=== PATIENT | female | born 1990 | race Asian ===

== ENCOUNTER 2019-03-01 16:29 | Inpatient (IN) | payer OTHER ==
[~2019-03-01] VITALS: Ht 149.9 cm; Wt 58.5 kg
[2019-03-01 17:14] LABS: BILIRUBIN,URINE SMALL (NEG); CLARITY,URINE CLEAR; COLOR,URINE AMBER; NITRITE,URINE NEGATIVE (NEG); PH,URINE 6.5; PROTEIN,URINE NEGATIVE (NEG-TRACE)
[2019-03-01] MEDS ORDERED: TERBUTALINE 1 MG/ML VIAL. SQ PRN (17:15)
[2019-03-01] MEDS ORDERED: IBUPROFEN 400 MG TABLET. PO PRN (17:15)
[2019-03-01] MEDS ORDERED: 0.9 % SODIUM CHLORIDE 10 ML DISP.SYRIN. IV PRN (17:15)
[2019-03-01] MEDS ORDERED: OXYTOCIN 30 UNIT/500 ML PREMIX 500 ML IV PRN ×2 (17:15)
[2019-03-01] MEDS ORDERED: LIDOCAINE 1% PF 30 ML VIAL. INJ PRN (17:15)
--- NOTE | 2019-03-01 17:16 | PDOC1 ---
OB - History Hx of Present Care: Good Care Ultrasounds: Normal mid trimester US Obstetrical Complications: None Medical Complications: None Past Family/Social History * Past Medical, Surgical, Family and Obstetric Histories reviewed from chart. Blood Type: Unknown Rubella: Unknown RPR/VDRL: Unknown GBS Status: Negative HBsAG: Unknown OB - Chief Complaint & HPI Date of Admission: Date of Admission: Mar 01, 2019 at 16:29 Chief Complaint/History : 2 Para: 1 EGA: 39 Reason for admission: active labor Admission Nurse Assessment Rev: Yes OB - Admission Exam Physical Exam HEENT: Normal Heart: Regular Rate Lungs: Clear Abdomen: Gravid, Non tender, Soft Extremities: Edema Reflexes: Normal Cervical Dilatation: 2cm Effacement: 75% Station: -3 Membranes: Intact Heart Rate: Normal Accelerations: Accelerations Present Decelerations: No decelerations Contractions on Admission: 6-10 Minutes Apart Intensity: Firm Text A: 39 wks IUP Active labor P: Admit labor management. JENNIFER SANCHEZ Jr, MD Mar 01, 2019 17:15
[2019-03-01 17:27] LABS: BACTERIA,URINE MANY /HPF (0-FEW); SQUAMOUS EPITHELIAL CELL,UR MANY /LPF
[2019-03-01 17:28] LABS: RBC,URINE OCC /HPF (0-2); WBC,URINE 20-40 /HPF (0-4)
[2019-03-01] MEDS ORDERED: BUTORPHANOL 2 MG/ML VIAL. IV PRN (17:30)
[2019-03-01] MEDS ORDERED: fentaNYL PF VIAL 100 MCG/2 ML VIAL IV PRN ×2 (17:30)
[2019-03-01] MEDS ORDERED: NALBUPHINE 10 MG/ML AMPUL. IV PRN (17:30)
[2019-03-01 17:47] LABS: BASO % 0 % (0-3); EOS # 0.1 x10^3/uL (0.0-0.7); EOS % 1 % (0-3); HEMATOCRIT 30.5 % (36.0-47.0); HEMOGLOBIN 10.6 g/dL (12.0-15.5); LYMPH # 1.8 x10^3/uL (1.0-4.8); LYMPH % 25 % (24-48); MEAN CORPUSCULAR HEMOGLOBIN 29 pg (25-35); MEAN CORPUSCULAR HGB CONC 35 g/dL (31-37); MEAN CORPUSCULAR VOLUME 84 fL (79-100); MONO # 0.6 x10^3/uL (0.0-1.1); MONO % 8 % (0-9); NEUT # 4.8 x10^3/uL (1.8-7.7); NEUT % 66 % (31-73); PLATELET COUNT 219 x10^3/uL (140-400); RED BLOOD COUNT 3.64 x10^6/uL (3.50-5.40); WHITE BLOOD COUNT 7.3 x10^3/uL (4.0-11.0)
[2019-03-01] MEDS: IV RINGERS,LACTATED 1000ML 1,000 ML IV SCH ×2 (18:08→23:12)
[2019-03-01 18:14] VITALS: BP 114/69
[2019-03-02] MEDS: IV RINGERS,LACTATED 1000ML 1,000 ML IV SCH (06:39)
[2019-03-02] MEDS ORDERED: ROPIVacaine 0.2% PF 10 ML VIAL. ONE ×2 (06:53→07:00)
[2019-03-02] MEDS ORDERED: L&D EPIDURAL SYRINGE 50 ML ONE (06:54)
[2019-03-02] MEDS ORDERED: L&D EPIDURAL 50 ML SYRINGE. ONE (07:00)
--- NOTE | 2019-03-02 09:58 | PDOC ---
VAGINAL DELIVERY DATE DATE: 03/02/19 TIME: 09:57 : 2 Para: 2 EGA: 39 VAGINAL DELIVERY: VTX VACCUM ASSISTED: No PLACENTA: Spontaneous 8/9 SEX: Female WEIGHT Weight [3480 gm ] Nuchal Cord: No Amniotic Fluid: Thin Meconium PAIN: Epidural EPISIOTOMY: No EXTENSION: Yes (2nd degree midline laceration) REPAIRED WITH 2-0 vicryl EBL 300 ml COMPLICATIONS none CONDITION pt. stable Signs of Intrauterine Infectio: None Shoulder Dystocia: No JENNIFER SANCHEZ Jr, MD Mar 02, 2019 09:58
[2019-03-02] MEDS ORDERED: OXYTOCIN 30 UNIT/500 ML PREMIX 500 ML IV PRN (10:00)
[2019-03-02] MEDS ORDERED: HYDROCORTISONE 1% TOPICAL OINTMENT 30GM TUBE. TP PRN (10:00)
[2019-03-02] MEDS ORDERED: oxyCODONE/APAP 5/325 1 TAB TABLET PO PRN (10:00)
[2019-03-02] MEDS ORDERED: BENZOCAINE 20% TOPICAL AEROSOL SPRAY 57GM CAN. TP PRN (10:00)
[2019-03-02] MEDS ORDERED: MAG HYDROX/ALUMINUM HYD/SIMETH 30 ML ORAL.SUSP PO PRN (10:00)
[2019-03-02] MEDS ORDERED: SIMETHICONE 80 MG TAB.CHEW PO PRN (10:00)
[2019-03-02] MEDS ORDERED: diphenhydrAMINE HCL 25 MG CAPSULE PO PRN (10:00)
[2019-03-02] MEDS ORDERED: PHENYLEPH/MINERAL OIL/PETROLAT RECTAL OINTMENT TUBE. RC PRN (10:00)
[2019-03-02] MEDS ORDERED: 0.9 % SODIUM CHLORIDE 10 ML DISP.SYRIN. IV PRN (10:00)
[2019-03-02] MEDS ORDERED: ZOLPIDEM 5 MG TABLET. PO PRN (10:00)
[2019-03-02] MEDS ORDERED: MAGNESIUM HYDROXIDE 2,400 MG/30 ML ORAL.SUSP. PO PRN (10:00)
[2019-03-02] MEDS ORDERED: MMR per PROTOCOL. MC PRN (10:00)
[2019-03-02] MEDS ORDERED: ACETAMINOPHEN 325 MG TABLET. PO PRN (10:00)
[2019-03-02] MEDS: IBUPROFEN 400 MG TABLET. PO PRN ×2 (11:38→19:57)
[2019-03-02 12:30] VITALS: BP 117/71
[2019-03-02 13:30] VITALS: BP 119/68
[2019-03-02 17:05] VITALS: BP 118/69
[2019-03-02] MEDS: DOCUSATE SODIUM 100 MG CAPSULE. PO PRN (19:57)
[2019-03-02 20:10] VITALS: BP 117/78
[2019-03-03 00:36] VITALS: BP 99/59
[2019-03-03 04:18] VITALS: BP 119/54
[2019-03-03 04:22] LABS: BASO % 0 % (0-3); EOS # 0.1 x10^3/uL (0.0-0.7); EOS % 1 % (0-3); HEMATOCRIT 30.1 % (36.0-47.0); HEMOGLOBIN 10.2 g/dL (12.0-15.5); LYMPH # 2.8 x10^3/uL (1.0-4.8); LYMPH % 29 % (24-48); MEAN CORPUSCULAR HEMOGLOBIN 29 pg (25-35); MEAN CORPUSCULAR HGB CONC 34 g/dL (31-37); MEAN CORPUSCULAR VOLUME 84 fL (79-100); MONO # 0.7 x10^3/uL (0.0-1.1); MONO % 7 % (0-9); NEUT # 6.1 x10^3/uL (1.8-7.7); NEUT % 63 % (31-73); PLATELET COUNT 196 x10^3/uL (140-400); RED BLOOD COUNT 3.59 x10^6/uL (3.50-5.40); WHITE BLOOD COUNT 9.7 x10^3/uL (4.0-11.0)
--- NOTE | 2019-03-03 08:08 | PDOC ---
OB Progress Note Date of Service 03/03/19 Time of Evaluation 0805 Notes Pt. feeling well. No complaints. Breast feeding. Lab Laboratory Tests Test 03/01/19 16:47 03/01/19 17:34 03/03/19 04:15 Urine Collection Type Unknown Urine Color Krissy Urine Clarity Clear Urine pH 6.5 Urine Specific [place] 1.025 Urine Protein Negative mg/dL (NEG-TRACE) Urine Glucose (UA) Negative mg/dL (NEG) Urine Ketones (Stick) Negative mg/dL (NEG) Urine Blood Negative (NEG) Urine Nitrite Negative (NEG) Urine Bilirubin Small (NEG) Urine Urobilinogen Dipstick 4.0 mg/dL (0.2 mg/dL) Urine Leukocyte Esterase Moderate (NEG) Urine RBC Occ /HPF (0-2) Urine WBC 20-40 /HPF (0-4) Urine Squamous Epithelial Cells Many /LPF Urine Bacteria Many /HPF (0-FEW) Urine Mucus Marked /LPF White Blood Count 7.3 x10^3/uL (4.0-11.0) 9.7 x10^3/uL (4.0-11.0) Red Blood Count 3.64 x10^6/uL (3.50-5.40) 3.59 x10^6/uL (3.50-5.40) Hemoglobin 10.6 g/dL (12.0-15.5) 10.2 g/dL (12.0-15.5) Hematocrit 30.5 % (36.0-47.0) 30.1 % (36.0-47.0) Mean Corpuscular Volume 84 fL (79-100) 84 fL (79-100) Mean Corpuscular Hemoglobin 29 pg (25-35) 29 pg (25-35) Mean Corpuscular Hemoglobin Concent 35 g/dL (31-37) 34 g/dL (31-37) Red Cell Distribution Width 13.0 % (11.5-14.5) 13.0 % (11.5-14.5) Platelet Count 219 x10^3/uL (140-400) 196 x10^3/uL (140-400) Neutrophils (%) (Auto) 66 % (31-73) 63 % (31-73) Lymphocytes (%) (Auto) 25 % (24-48) 29 % (24-48) Monocytes (%) (Auto) 8 % (0-9) 7 % (0-9) Eosinophils (%) (Auto) 1 % (0-3) 1 % (0-3) Basophils (%) (Auto) 0 % (0-3) 0 % (0-3) Neutrophils # (Auto) 4.8 x10^3/uL (1.8-7.7) 6.1 x10^3/uL (1.8-7.7) Lymphocytes # (Auto) 1.8 x10^3/uL (1.0-4.8) 2.8 x10^3/uL (1.0-4.8) Monocytes # (Auto) 0.6 x10^3/uL (0.0-1.1) 0.7 x10^3/uL (0.0-1.1) Eosinophils # (Auto) 0.1 x10^3/uL (0.0-0.7) 0.1 x10^3/uL (0.0-0.7) Basophils # (Auto) 0.0 x10^3/uL (0.0-0.2) 0.0 x10^3/uL (0.0-0.2) Treponema pallidum Antibody Nonreactive (Nonreactive) Hepatitis B Surface Antigen Nonreactive (Nonreactive) Laboratory Tests Test 03/03/19 04:15 White Blood Count 9.7 x10^3/uL (4.0-11.0) Red Blood Count 3.59 x10^6/uL (3.50-5.40) Hemoglobin 10.2 g/dL (12.0-15.5) Hematocrit 30.1 % (36.0-47.0) Mean Corpuscular Volume 84 fL (79-100) Mean Corpuscular Hemoglobin 29 pg (25-35) Mean Corpuscular Hemoglobin Concent 34 g/dL (31-37) Red Cell Distribution Width 13.0 % (11.5-14.5) Platelet Count 196 x10^3/uL (140-400) Neutrophils (%) (Auto) 63 % (31-73) Lymphocytes (%) (Auto) 29 % (24-48) Monocytes (%) (Auto) 7 % (0-9) Eosinophils (%) (Auto) 1 % (0-3) Basophils (%) (Auto) 0 % (0-3) Neutrophils # (Auto) 6.1 x10^3/uL (1.8-7.7) Lymphocytes # (Auto) 2.8 x10^3/uL (1.0-4.8) Monocytes # (Auto) 0.7 x10^3/uL (0.0-1.1) Eosinophils # (Auto) 0.1 x10^3/uL (0.0-0.7) Basophils # (Auto) 0.0 x10^3/uL (0.0-0.2) Medications Current Medications Sodium Chloride (Normal Saline Flush) 3 ml QSHIFT PRN IV AFTER MEDS AND BLOOD DRAWS; Start 03/01/19 at 17:15; Stop 03/02/19 at 10:03; Status DC Ringer's Solution 1,000 ml @ 125 mls/hr Q8H IV Last administered on 03/02/19at 06:39; Start 03/01/19 at 17:09; Stop 03/02/19 at 20:16; Status DC Terbutaline Sulfate (Brethine) 0.25 mg 1X PRN PRN SQ SEE COMMENTS; Start 03/01/19 at 17:15; Stop 03/02/19 at 17:14; Status DC Lidocaine HCl (Xylocaine 1% Pf 30ml Vial) 30 ml 1X PRN PRN INJ SEE COMMENTS; Start 03/01/19 at 17:15; Stop 03/03/19 at 17:14 Oxytocin/Sodium Chloride 500 ml @ 0 mls/hr CONT PRN IV SEE I/O RECORD Last administered on 03/02/19at 05:23; Start 03/01/19 at 17:15 Oxytocin/Sodium Chloride 500 ml @ 0 mls/hr CONT PRN PRN IV Post delivery bleeding; Start 03/01/19 at 17:15 Ibuprofen (Motrin) 800 mg PRN Q6HRS PRN PO PAIN; Start 03/01/19 at 17:15; Stop 03/02/19 at 10:04; Status DC Nalbuphine HCl (Nubain) 10 mg PRN Q1HR PRN IV Severe labor pain; Start 03/01/19 at 17:30; Status UNV Butorphanol Tartrate (Stadol) 2 mg PRN Q1HR PRN IV Severe labor pain; Start 03/01/19 at 17:30 Fentanyl Citrate (Fentanyl 2ml Vial) 100 mcg PRN Q30MIN PRN IV Severe pain; Start 03/01/19 at 17:30 Fentanyl Citrate (Fentanyl 2ml Vial) 50 mcg PRN Q20MIN PRN IV Labor pain Last administered on 03/02/19at 06:37; Start 03/01/19 at 17:30 Ropivacaine (Naropin 0.2%) 10 ml STK-MED ONCE .ROUTE ; Start 03/02/19 at 06:53; Stop 03/02/19 at 06:54; Status DC Fentanyl Citrate 50 ml @ As Directed STK-MED ONCE .ROUTE ; Start 03/02/19 at 06:54; Stop 03/02/19 at 06:54; Status DC Sodium Chloride (Normal Saline Flush) 10 ml QSHIFT PRN IV AFTER MEDS AND BLOOD DRAWS; Start 03/02/19 at 10:00 Oxytocin/Sodium Chloride 500 ml @ 62.5 mls/hr CONT PRN IV SEE I/O RECORD; Start 03/02/19 at 10:00; Stop 03/02/19 at 17:59; Status DC Acetaminophen (Tylenol) 650 mg PRN Q6HRS PRN PO MILD PAIN / TEMP; Start 03/02/19 at 10:00 Ibuprofen (Motrin) 800 mg PRN Q8HRS PRN PO INFLAMMATION/PAIN PREVENTION Last administered on 03/02/19at 19:57; Start 03/02/19 at 10:00 Docusate Sodium (Colace) 100 mg PRN BID PRN PO CONSTIPATION Last administered on 03/02/19at 19:57; Start 03/02/19 at 10:00 Magnesium Hydroxide (Milk Of Magnesia) 2,400 mg PRN DAILY PRN PO CONSTIPATION; Start 03/02/19 at 10:00 Al Hydroxide/Mg Hydroxide (Mylanta Plus Xs) 30 ml PRN Q4HRS PRN PO HEARTBURN / GAS; Start 03/02/19 at 10:00 Simethicone (Gas-X) 80 mg PRN AFTMEALHC PRN PO GAS / BLOATING; Start 03/02/19 at 10:00 Diphenhydramine HCl (Benadryl) 25 mg PRN Q6HRS PRN PO ITCHING; Start 03/02/19 at 10:00 Benzocaine (Americaine) 1 spray PRN QID PRN TP TOPICAL PAIN; Start 03/02/19 at 10:00 Phenyleph/Shark Oil/Min Oil/Petrol (Preparation H) 1 napoleon PRN QID PRN RC RECTAL PAIN; Start 03/02/19 at 10:00 Hydrocortisone (Cortaid) 1 napoleon PRN QID PRN TP PERINEAL PAIN; Start 03/02/19 at 10:00 Ferrous Sulfate (Feosol) 325 mg BIDWMEALS PO ; Start 03/03/19 at 08:00 Zolpidem Tartrate (Ambien) 5 mg PRN QHS PRN PO INSOMNIA, MAY REPEAT X1; Start 03/02/19 at 10:00 Info (Do NOT chart on this placeholder) 1 ea 1X PRN PRN MC SEE COMMENTS; Start 03/02/19 at 10:00 Info (Do NOT chart on this placeholder) 1 ea 1X PRN PRN MC SEE COMMENTS; Start 03/02/19 at 10:00 Oxycodone/ Acetaminophen (Percocet 5/325) 2 tab PRN Q4HRS PRN PO MODERATE PAIN, SEVERE PAIN; Start 03/02/19 at 10:00 Exam Abd: soft, non tender, fundus firm Assessment PPD#1 s/p Plan of Care: Continue current Tx, JENNIFER Babcock Jr, MD Mar 03, 2019 08:08
[2019-03-03] MEDS: DOCUSATE SODIUM 100 MG CAPSULE. PO PRN (08:52)
[2019-03-03] MEDS: IBUPROFEN 400 MG TABLET. PO PRN ×2 (08:52→20:15)
[2019-03-03] MEDS: FERROUS SULFATE 325 MG TABLET. PO SCH ×2 (08:52→20:15)
[2019-03-03 11:30] VITALS: BP 109/71
[2019-03-03 16:01] VITALS: BP 102/56
[2019-03-03 21:29] VITALS: BP 99/68
[2019-03-04 05:03] VITALS: BP 102/61
[2019-03-04] MEDS: IBUPROFEN 400 MG TABLET. PO PRN ×2 (06:42→16:43)
[2019-03-04 12:00] VITALS: BP 126/66
--- NOTE | 2019-03-04 15:36 | PDOC ---
GENERAL General: Pt doing ok. No Problems. VITAL SIGNS Vital Signs/I&O: Vital Signs Date Time Temp Pulse Resp B/P (MAP) Pulse Ox O2 Delivery O2 Flow Rate FiO2 03/04/19 12:00 98.7 74 18 126/66 (86) 95 Room Air 98.7 I & O 03/03/19 03/03/19 03/04/19 15:00 23:00 07:00 Intake Total 760 ml 240 ml Balance 760 ml 240 ml ALLERGIES Allergies: Allergies Coded Allergies Type Severity Reaction Last Updated Verified No Known Drug Allergies 03/01/19 No ASSESSMENT & PLAN A&P Pt will go home today. Pt needs to make appt with Dr Bowers in 6 weeks. CONSUELO CROCKER MD Mar 04, 2019 15:36
[2019-03-04] MEDS: DOCUSATE SODIUM 100 MG CAPSULE. PO PRN (16:43)
[2019-03-04 19:00] VITALS: BP 98/61
--- NOTE | 2019-03-04 20:15 | NUR ---
[employer] language phone used for interrupter services. Discharge instructions reviewed with patient and spouse via interrupter. Verbalizes understanding of instructions and signs. Discharged to home with self care. Discharged via private vehicle. Mom holds baby in car seat while seated in wheelchair. Mom and baby taken to ER entrance by L/D staff member. Mom and baby secured in private vehicle. Discharged to home without incident.
== END 2019-03-04 20:15 | disposition home or self-care (01) | DRG 807 ==
LOC: OBSVTOIN 16:29 → 3 SO LND 16:29 → 3 NORTH 03-02 12:16
PROVIDERS: ADMIT Obstetrics & Gynecology; ATTEND Obstetrics & Gynecology
PROC: 10E0XZZ Delivery of Products of Conception, External Approach (ICD-10-PCS; principal; 2019-03-02)
PROC: 0KQM0ZZ Repair Perineum Muscle, Open Approach (ICD-10-PCS; 2019-03-02)
PROC: 00HU33Z Insertion of Infusion Device into Spinal Canal, Percutaneous Approach (ICD-10-PCS; 2019-03-02)
PROC: 3E0R3BZ Introduction of Anesthetic Agent into Spinal Canal, Percutaneous Approach (ICD-10-PCS; 2019-03-02)
DX: O77.0 Labor and delivery complicated by meconium in amniotic fluid (principal); Z37.0 Single live birth; Z3A.39 39 weeks gestation of pregnancy; O70.1 Second degree perineal laceration during delivery
CPT/HCPCS: 36415; 81001; 85025; 86592; 86703; 86762; 86850; 86900; 86901; 87086; 87340; G0378; J2590; J2795; J3010; J7120

== ENCOUNTER 2019-08-07 15:08 | Emergency (ER) | payer OTHER ==
[~2019-08-07] VITALS: Ht 167.6 cm; Wt 50.0 kg
[2019-08-07 15:56] LABS: BILIRUBIN,URINE NEGATIVE (NEG); CLARITY,URINE TURBID; COLOR,URINE YELLOW; NITRITE,URINE NEGATIVE (NEG); PROTEIN,URINE 30 mg/dL (NEG-TRACE); UROBILINOGEN,URINE 0.2 mg/dL (0.2 mg/dL)
[2019-08-07 16:05] LABS: AMORPHOUS SEDIMENT,UR PRESENT /HPF; HYALINE CASTS, URINE FEW /HPF; SQUAMOUS EPITHELIAL CELL,UR MOD /LPF
[2019-08-07 16:06] LABS: BACTERIA,URINE 0 /HPF (0-FEW); RBC,URINE >40 /HPF (0-2)
--- NOTE | 2019-08-07 16:11 | PHYS DOC ---
Past Medical History Past Medical History: No Pertinent History (BRAN CONTRERAS APRN) Past Surgical History: No Surgical History (BRAN CONTRERAS APRN) Smoking Status: Never Smoker Alcohol Use: None (BRAN CONTRERAS APRN) General Adult EDM: Chief Complaint: DIZZY/LIGHT HEADED HPI: HPI: Patient is a 28 year old her [place] speaking female who presents to the ED today complaining of dizziness, vomiting and "slow" headache that began this morning. Patient denies any exacerbating or relieving factors to her symptoms, she reports she is currently breast-feeding. Patient is [place] speaking, interpretation was provided by Vascular Neurologist (BRAN CONTRERAS APRN) Review of Systems: Review of Systems: Constitutional: Denies fever or chills. [] Eyes: Denies change in visual acuity. [] HENT: Denies nasal congestion or sore throat. [] Respiratory: Denies cough or shortness of breath. [] Cardiovascular: Denies chest pain or edema. [] GI: Denies abdominal pain, nausea, vomiting, bloody stools or diarrhea. [] : Denies dysuria. [] Musculoskeletal: Denies back pain or joint pain. [] Integument: Denies rash. [] Neurologic: Reports headache and dizziness, denies focal weakness or sensory aleta nges. [] Psychiatric: Denies depression or anxiety. [] (BRAN CONTRERAS APRN) Heart Score: Risk Factors: Risk Factors: DM, Current or recent (<one month) smoker, HTN, HLP, family history of CAD, obesity. Risk Scores: Score 0 - 3: 2.5% MACE over next 6 weeks - Discharge Home Score 4 - 6: 20.3% MACE over next 6 weeks - Admit for Clinical Observation Score 7 - 10: 72.7% MACE over next 6 weeks - Early Invasive Strategies (BRAN CONTRERAS APRN) Current Medications: Current Medications Medications (Trade) Dose Ordered Sig/Vicky Start Time Stop Time Status Last Admin Dose Admin Meclizine HCl (Antivert) 12.5 mg 1X ONCE 08/07/19 15:45 08/07/19 15:48 DC Methylprednisolone Sodium Succinate (SOLU-Medrol 125MG VIAL) 125 mg 1X ONCE 08/07/19 15:45 08/07/19 15:48 DC Ondansetron HCl (Zofran) 4 mg 1X ONCE 08/07/19 15:45 08/07/19 15:48 DC Sodium Chloride 1,000 ml @ 1,000 mls/hr 1X ONCE 08/07/19 15:45 08/07/19 16:44 (BRAN CONTRERAS VP LAB) Allergies: Allergies: Allergies Coded Allergies Type Severity Reaction Last Updated Verified No Known Drug Allergies 03/01/19 No (BRAN CONTRERAS VP LAB) Physical Exam: PE: Constitutional: Well developed, well nourished, no acute distress, non-toxic appearance. [] HENT: Normocephalic, atraumatic, bilateral external ears normal, oropharynx moist, no oral exudates, nose normal. [] Eyes: PERRLA, EOMI, conjunctiva normal, no discharge. [] Neck: Normal range of motion, no tenderness, supple, no stridor. [] Cardiovascular:Heart rate regular rhythm, no murmur [] Lungs & Thorax: Bilateral breath sounds clear to auscultation [] Abdomen: Bowel sounds normal, soft, no tenderness, no masses, no pulsatile masses. [] Skin: Warm, dry, no erythema, no rash. [] Back: No tenderness, no CVA tenderness. [] Extremities: No tenderness, no cyanosis, no clubbing, ROM intact, no edema. [] Neurologic: Alert and oriented X 3, normal motor function, normal sensory function, no focal deficits noted. Cranial nerves II through XII intact Psychologic: Affect normal, judgement normal, mood normal. [] (BRAN CONTRERAS VP LAB) Current Patient Data: Labs: Laboratory Tests Test 08/07/19 15:44 Urine Collection Type Unknown Urine Color Yellow Urine Clarity Turbid Urine pH 6.0 (<5.0-8.0) Urine Specific [place] >=1.030 (1.000-1.030) Urine Protein 30 mg/dL (NEG-TRACE) Urine Glucose (UA) Negative mg/dL (NEG) Urine Ketones (Stick) Trace mg/dL (NEG) Urine Blood Large (NEG) Urine Nitrite Negative (NEG) Urine Bilirubin Negative (NEG) Urine Urobilinogen Dipstick 0.2 mg/dL (0.2 mg/dL) Urine Leukocyte Esterase Small (NEG) Urine RBC >40 /HPF (0-2) Urine WBC 1-4 /HPF (0-4) Urine Squamous Epithelial Cells Mod /LPF Urine Amorphous Sediment Present /HPF Urine Bacteria 0 /HPF (0-FEW) Urine Hyaline Casts Few /HPF Urine Mucus Marked /LPF Vital Signs: Vital Signs Date Time Temp Pulse Resp B/P (MAP) Pulse Ox O2 Delivery O2 Flow Rate FiO2 08/07/19 15:50 98.1 70 16 109/67 (81) 100 Room Air 98.1 (BRAN CONTRERAS APRN) EKG: EKG: [] (BRAN CONTRERAS APRN) Radiology/Procedures: Radiology/Procedures: [] (BRAN CONTRERAS APRN) Course & Med Decision Making: Course & Med Decision Making Pertinent Labs and Imaging studies reviewed. (See chart for details) This is a 28-year-old female patient presenting to the ED with headache, dizziness and vomiting, symptoms began this morning. CBC with no acute findings, CMP with potassium of 2.9, patient was given oral potassium replacement, urine appears contaminated with squamous cells epithelium. Urine also shows patient is dehydrated, she was given IV fluids in the ED, given Zofran and Solu-Medrol, feels better, discharge to home. (BRAN CONTRERAS APRN) Dragon Disclaimer: Dragon Disclaimer: This electronic medical record was generated, in whole or in part, using a voice recognition dictation system. (BRAN CONTRERAS APRN) Departure Departure Impression: Primary Impression: Dizziness Additional Impressions: Vomiting Qualified Codes: R11.10 - Vomiting, unspecified Hypokalemia Headache Qualified Codes: R51 - Headache Disposition: 01 HOME, SELF-CARE Condition: STABLE Referrals: NO PCP (PCP) follow up with your doctor in 1-2 weeks Patient Instructions: Dizziness, [id number], Headache, FAQs, Hypokalemia- Brief Additional Instructions: You were evaluated in the emergency room, please push fluids, take Tylenol as needed for pain. You can take Zofran as needed for nausea or vomiting. Follow- up with your own doctor in 1 to 2 weeks. Scripts Ondansetron (ONDANSETRON ODT) 4 Mg Tab.rapdis 1 TAB PO PRN Q6-8HRS, #16 TAB Prov: BRAN CONTRERAS APRN 08/07/19 Attending Signature Attending Signature I have reviewed the PA/ACCOUNT SUPPORT REP's note and plan of care. I was available for consultation as needed during the patient's visit in the emergency department. I agree with the clinical impression, plan, and disposition. (ALBA HOWELL DO) BRAN CONTRERAS APRN August 07, 2019 16:11 ALBA HOWELL DO August 08, 2019 13:28
[2019-08-07 16:16] LABS: BARBITURATES NEG (NEG); BENZODIAZEPINES NEG (NEG); CANNABINOIDS NEG (NEG); COCAINE NEG (NEG); METHADONE NEG (NEG); OPIATES NEG (NEG); PHENCYCLIDINE NEG (NEG)
[2019-08-07 16:20] LABS: AMPHETAMINE/METHAMPHETAMINE NEG (NEG)
[2019-08-07] MEDS: methylPREDNISolone SOD SUCC PF 125 MG/2 ML VIAL. IV ONE (16:32)
[2019-08-07] MEDS: MECLIZINE HCL 12.5 MG TABLET. PO ONE (16:32)
[2019-08-07] MEDS: ONDANSETRON PF 4 MG/2 ML VIAL. IVP ONE (16:33)
[2019-08-07] MEDS: IV NORMAL SALINE 1000ML BAG 1,000 ML IV ONE (16:36)
[2019-08-07 16:37] LABS: BASO % 0 % (0-3); EOS % 0 % (0-3); HEMATOCRIT 37.5 % (36.0-47.0); HEMOGLOBIN 12.7 g/dL (12.0-15.5); LYMPH # 0.8 x10^3/uL (1.0-4.8); LYMPH % 12 % (24-48); MEAN CORPUSCULAR HEMOGLOBIN 27 pg (25-35); MEAN CORPUSCULAR HGB CONC 34 g/dL (31-37); MEAN CORPUSCULAR VOLUME 79 fL (79-100); MONO # 0.3 x10^3/uL (0.0-1.1); MONO % 4 % (0-9); NEUT # 6.1 x10^3/uL (1.8-7.7); NEUT % 85 % (31-73); PLATELET COUNT 327 x10^3/uL (140-400); RED BLOOD COUNT 4.74 x10^6/uL (3.50-5.40); RED CELL DISTRIBUTION WIDTH 14.3 % (11.5-14.5); WHITE BLOOD COUNT 7.3 x10^3/uL (4.0-11.0)
[2019-08-07 16:39] LABS: U PREG PATIENT NEGATIVE (NEG)
[2019-08-07 17:01] LABS: ALBUMIN 3.6 g/dL (3.4-5.0); ALBUMIN/GLOBULIN RATIO 0.8 (1.0-1.7); CALCIUM 8.2 mg/dL (8.5-10.1); CREATININE 0.5 mg/dL (0.6-1.0); GFR 149.1; TOTAL BILIRUBIN 0.7 mg/dL (0.2-1.0)
[2019-08-07 17:03] LABS: POTASSIUM 2.9 mmol/L (3.5-5.1)
[2019-08-07] MEDS ORDERED: ONDA4TAB12 PO (17:13)
[2019-08-07 17:33] VITALS: BP 136/82
[2019-08-07] MEDS: POTASSIUM CHLORIDE 20 MEQ TABLET.ER. PO ONE (18:05)
== END 2019-08-07 18:23 | disposition home or self-care (01) ==
LOC: ER 15:08
DX: R42 Dizziness and giddiness (principal); R11.10 Vomiting, unspecified; R51 Headache; E87.6 Hypokalemia
CPT/HCPCS: 36415; 80053; 80307; 81001; 81025; 85025; 96361; 96374; 96375; 99285; G0480; J2405; J2930; J7030; J8597

== ENCOUNTER 2020-01-24 11:51 | Emergency (ER) | payer OTHER ==
[~2020-01-24] VITALS: Ht 152.4 cm; Wt 54.0 kg
[~2020-01-24 11:51] MED LIST: ONDA4TAB12 PO
[2020-01-24 12:38] VITALS: BP 133/74
--- NOTE | 2020-01-24 13:00 | PHYS DOC ---
Past Medical History Past Medical History: No Pertinent History Past Surgical History: No Surgical History Smoking Status: Never Smoker Alcohol Use: None General Adult EDM: Chief Complaint: COUGH HPI: HPI: 29 yo F presents to the ed with c/o dry cough x 2 days. Review of Systems: Review of Systems: Constitutional: Denies fever or chills. [] Eyes: Denies change in visual acuity. [] HENT: Denies nasal congestion or sore throat. [] Respiratory: Denies cough or shortness of breath. [] Cardiovascular: Denies chest pain or edema. [] GI: Denies abdominal pain, nausea, vomiting, bloody stools or diarrhea. [] : Denies dysuria. [] Musculoskeletal: Denies back pain or joint pain. [] Integument: Denies rash. [] Neurologic: Denies headache, focal weakness or sensory changes. [] Endocrine: Denies polyuria or polydipsia. [] Lymphatic: Denies swollen glands. [] Psychiatric: Denies depression or anxiety. [] Heart Score: Risk Factors: Risk Factors: DM, Current or recent (<one month) smoker, HTN, HLP, family history of CAD, obesity. Risk Scores: Score 0 - 3: 2.5% MACE over next 6 weeks - Discharge Home Score 4 - 6: 20.3% MACE over next 6 weeks - Admit for Clinical Observation Score 7 - 10: 72.7% MACE over next 6 weeks - Early Invasive Strategies Allergies: Allergies: Allergies Coded Allergies Type Severity Reaction Last Updated Verified No Known Drug Allergies 03/01/19 No Physical Exam: PE: Constitutional: Well developed, well nourished, no acute distress, non-toxic appearance. [] HENT: Normocephalic, atraumatic, bilateral external ears normal, oropharynx moist, no oral exudates, nose normal. [] Eyes: PERRLA, EOMI, conjunctiva normal, no discharge. [] Neck: Normal range of motion, no tenderness, supple, no stridor. [] Cardiovascular:Heart rate regular rhythm, no murmur [] Lungs & Thorax: Bilateral breath sounds clear to auscultation [] Abdomen: Bowel sounds normal, soft, no tenderness, no masses, no pulsatile masses. [] Skin: Warm, dry, no erythema, no rash. [] Back: No tenderness, no CVA tenderness. [] Extremities: No tenderness, no cyanosis, no clubbing, ROM intact, no edema. [] Neurologic: Alert and oriented X 3, normal motor function, normal sensory function, no focal deficits noted. [] Psychologic: Affect normal, judgement normal, mood normal. [] Current Patient Data: Vital Signs: Vital Signs Date Time Temp Pulse Resp B/P (MAP) Pulse Ox O2 Delivery O2 Flow Rate FiO2 01/24/20 12:38 98.3 93 18 133/74 (93) 100 Room Air 98.3 EKG: EKG: [] Radiology/Procedures: Radiology/Procedures: [] Course & Med Decision Making: Course & Med Decision Making Pertinent Labs and Imaging studies reviewed. (See chart for details) Strict ED return precautions were given for []. encouraged urgent outpatient follow-up with PMD and [specialist]. Life-threatening processes were considered but are low suspicion at this time, given history and physical exam. Pt was educated on all prescription medications and adverse effects. All patient's questions were answered and pt was stable at time of discharge. I spoken with the patient and her caregivers. I explained the patient's condition, diagnoses and treatment plan based on the information available to me at this time. I have answered the patient and her caregiver's questions and addressed any concerns. The patient and her caregivers have a good understanding of patient's diagnosis, condition and treatment plan as can be ex pected at this point. Vital signs have been stable. Patient's condition is stable and appropriate for discharge from the emergency department. Patient will pursue further outpatient evaluation with primary care physician or other designated or consulting physician as outlined in the discharge instructions. The patient and/or caregivers are agreeable to this plan of care and follow-up instructions have been explained in detail. The patient and/or caregivers have received these instructions in written form and have expressed an understanding of the discharge instructions. The patient and/or caregivers are aware that any significant change of condition or worsening of symptoms should prompt immediate return to this or the closest emergency department or call to 911. Javier Disclaimer: Javier Disclaimer: This electronic medical record was generated, in whole or in part, using a voice recognition dictation system. Departure Departure Impression: Primary Impression: Cough Disposition: 01 DC HOME SELF CARE/HOMELESS Condition: STABLE Referrals: NO PCP (PCP) FOLLOW UP WITH FAMILY MEDICINE: Family Medicine Address: [address] [place] [address] Patient Instructions: Cough, Adult Additional Instructions: You have been tested for or diagnosed with COVID-19. It is an infection caused by a new type of coronavirus. COVID-19 will cause cold-like or mild flu symptoms in most. It can cause more severe symptoms like problems breathing in some. There is no treatment for COVID-19. The body will clear the infection over time. Self-care will help to ease discomfort. Steps to Take: Self-Care Rest as needed. Healthy habits may help you feel better. Steps include: Choose healthy foods including fruits and vegetables. Drink water throughout the day. Get plenty of sleep each night. If you smoke, try to quit. It may ease breathing. Avoid alcohol. Keep Others Healthy The virus can spread to others. Droplets are released every time you sneeze or cough. The droplets can get into the mouth, nose, or eyes of people near you and lead to infection. To lower the chances of spreading COVID-19 to others: Stay at home until your doctor has said it is safe to leave. If you tested positive this will mean staying isolated until both of the following are true: At least 7 days have passed since the start of illness. You are free of fever for at least 72 hours without the use of medicine. During this time: - Avoid public areas, events, or transportation. Do not return to work or school until your doctor has said it is safe to do so. - Call ahead if you need to go to a medical center. Let them know you may have COVID-19. It will help them guide you where to go. They may also ask you to wear a facemask when you come to the office. - If you call for emergency medical services, let them know you may have COVID- 19. While at home: - Try to avoid close contact with others. Stay about 6 feet away. - If possible, spend most of your time in a separate room from others. - Use a face mask if you will be in close contact with others such as sharing a room or vehicle. - Have someone wipe down common surfaces in the home. Use household tanbark peeler every day on areas like doorknobs, counters, or sinks. - Cough or sneeze into a tissue. Throw the tissue away right after use. If a tissue is not available, cough or sneeze into your elbow. - Wash your hands often. Wash them after sneezing or coughing. Use soap and water and wash for at least 20 seconds. Alcohol based hand cabin cleaner can be used if soap and water is not available. - Do not prepare food for others. Avoid sharing personal items like forks, spoons, or toothbrushes. - Avoid close contact with pets while you are sick. There is no evidence of the virus passing to pets. This is a safety step until more is known about this virus. Isolation can be frustrating. Social interaction can help. Keep in touch with friends and family through phone and tech options. You can still interact with others in your home, just keep a safe distance of about 6 feet. Follow-up: Your doctors office will check in with you to see if there are any changes in your health. You may be asked to keep track of symptoms to share with them. They will also let you know when you are clear to be in public again. Problems to Look Out For: Contact your doctor if your recovery is not going as you expect. Get emergency care if you have problems such as: - Trouble breathing - Nonstop chest pain or pressure - Changes in awareness, confusion, or problems waking - Lips or face have bluish color - Worsening of symptoms If you think you have an emergency, call for emergency medical services right away. As taken from [facility] EMERGENCY DEPARTMENT GENERAL DISCHARGE INSTRUCTIONS Thank you for coming to [facility] Emergency Department (ED) today and trusting us with you care. We trust that you had a positive experience in our Emergency Department. If you wish to speak to the department management, you may call the Director at [phone]. YOUR FOLLOW UP INSTRUCTIONS ARE FOLLOWS: 1. Do you have a private Doctor? If you do not have a private doctor, please ask for a resource list of physicians or clinics that may be able to assist you with follow up care. 2. The Emergency Physicain has interpreted your x-rays. The X-Ray specialist will also review them. If there is a change in the findings, you will be notified in 48 hours when at all possible. 3. A lab test or culture has been done, your results will be reviewed and you will be notified if you need a change in treatment. ADDITIONAL INSTRUCTIONS AND INFORMATION: 1. Your care today has been supervised by a physician who is specially trained in emergency care. Many problems require more than one evaluation for a complete diagnosis and treatment. We recommend that you schedule your follow up appointment as recommended to ensure complete treatment of you illness or injury. If you are unable to obtain follow up care and continue to have a problem, or if your condition worsens, we recommend that you return to the ED. 2. We are not able to safely determine your condition over the phone nor are we able to give sound medical advice over the phone. For these safety reasons, if you call for medical advice we will ask you to come to the ED for further evaluation. 3. If you have any questions regarding these discharge instructions please call the ED at [phone]. SAFETY INFORMATION: In the interest of safety, wellness, and injury prevention; we encourage you to wear your sealbelt, if you smoke; quite smoking, and we encourage family to use a protective helmet for bicycling and other sporting events that present an increased risk for head injury. IF YOUR SYMPTOMS WORSEN OR NEW SYMPTOMS DEVELOP, OR YOU HAVE CONCERNS ABOUT YOUR CONDITION; OR IF YOUR CONDITION WORSENS WHILE YOU ARE WAITING FOR YOUR FOLLOW UP APPOINTMENT; EITHER CONTACT YOUR PRIMARY CARE DOCTOR, THE PHYSICIAN WHOSE NAME AND NUMBER YOU WERE GIVEN, OR RETURN TO THE ED IMMEDIATELY. Scripts Guaifenesin/Dextromethorphan (MUCINEX DM ER 600-30 MG TABLET) 1 Each Tab.er.12h 1 TAB PO PRN BID PRN for cough and congestion for 7 Days, #28 TAB 0 Refills Prov: CHAPINCITO NOVAK DO 01/24/20 CHAPINCITO NOVAK DO Jan 24, 2020 13:00
--- NOTE | 2020-01-24 13:09 | RAD ---
PORTABLE CHEST 1V INDICATION: cough / Spl. Instructions: / History: . COMPARISON STUDY: None. FINDINGS: Lungs: Normal lung volume. No pulmonary mass or consolidation. The tracheobronchial tree and hilar structures are normal. Pleura: No pleural effusion or pneumothorax. Heart and Mediastinum: The cardiomediastinal silhouette is normal. The great vessels of the thorax are normal. Bones and Soft Tissues: The bones and soft tissues are within normal limits. IMPRESSION: No acute cardiopulmonary process. Electronically signed by: Dave Lemon MD (01/24/2020 1:06 PM) [id number]
[2020-01-24] MEDS ORDERED: GUAI-108 PO (15:31)
== END 2020-01-24 15:44 | disposition home or self-care (01) ==
LOC: ER 11:51
DX: R05 Cough (principal)
CPT/HCPCS: 71045; 99283